=== PATIENT | male | born 1980 | race Caucasian/White ===

== ENCOUNTER 2021-05-22 13:46 | Emergency (ER) | payer MEDICAID ==
[2021-05-22] MEDS ORDERED: CYCL10 PO (14:27)
[2021-05-22] MEDS ORDERED: FAMO20 PO (14:27)
[2021-05-22] MEDS ORDERED: SULF-261 PO (14:27)
[2021-05-22] MEDS ORDERED: LOPE2 PO (14:27)
[2021-05-22] MEDS ORDERED: DICY20TA2 PO (14:27)
[2021-05-22] MEDS ORDERED: KETOROLAC TROMETHAMINE 30 MG/ML VIAL IVP ONE (14:30)
[2021-05-22] MEDS ORDERED: SODIUM CHLORIDE 0.9% 1,000 ML IV ONE (14:30)
[2021-05-22 14:56] LABS: COVID AG,FIA SOURCE NASOPHARYNGEAL
[2021-05-22 14:57] LABS: BASOPHILS % (AUTO) 0.1 % (0.0-2.0); EOSINOPHILS % (AUTO) 0.9 % (1.0-6.0); HEMATOCRIT 41.1 % (41-53); HEMOGLOBIN 13.7 g/dL (13.5-17.5); LYMPHOCYTES # (AUTO) 0.5 K/uL (1.0-4.8); MEAN CORPUSCULAR HEMOGLOBIN 29.2 pg (26.0-34.0); MEAN CORPUSCULAR HGB CONC 33.3 G/dL (31.0-37.0); MEAN CORPUSCULAR VOLUME 88 fL (80-100); MONOCYTES # (AUTO) 0.3 K/uL (0.1-1.0); MONOCYTES % (AUTO) 6.8 % (2.0-9.0); NEUTROPHILS # (AUTO) 3.7 K/uL (1.8-7.7); NEUTROPHILS % (AUTO) 82.2 % (40.0-70.0); PLATELET COUNT (AUTO) 100 K/uL (150-450); RED BLOOD CELL COUNT(AUTO) 4.68 MIL/uL (4.50-5.90); RED CELL DISTRIBUTION WIDTH 13.3 % (11.5-14.5)
[2021-05-22 15:15] LABS: CALCIUM, TOTAL 7.8 mg/dL (8.8-10.5); CARBON DIOXIDE 30 mmol/L (22-29); CHLORIDE 105 mmol/L (98-107); CREATININE 0.95 mg/dL (0.60-1.30); GLOMERULAR FILTR. RATE CALC > 60 mL/min (>60); GLUCOSE,RANDOM 94 mg/dL (70-110); POTASSIUM 3.5 mmol/L (3.5-5.1); UREA NITROGEN, BLOOD 9 mg/dL (7-18)
[2021-05-22 15:21] LABS: ALANINE AMINOTRANSFERASE 130 U/L (12-78); ALBUMIN 3.1 g/dL (3.4-5.0); ALKALINE PHOSPHATASE 99 U/L (46-116); ANION GAP 7 mmol/L (8-16); ASPARTATE AMINOTRANSFERASE 66 U/L (15-37); BILIRUBIN,TOTAL 1.7 mg/dL (0.1-1.0); LIPASE 89 U/L (73-393); SODIUM SERUM 142 mmol/L (136-145); TOTAL PROTEIN, SERUM 6.7 g/dL (6.4-8.2)
[2021-05-22] MEDS ORDERED: ONDANSETRON HCL 4 MG/2 ML VIAL IVP ONE (16:45)
[2021-05-22 18:59] LABS: APPEARANCE,URINE CLEAR (CLEAR); BILIRUBIN,URINE NEGATIVE (NEGATIVE); GLUCOSE, URINE (UA) NEGATIVE (NEGATIVE); KETONES,URINE TRACE mg/dL (NEGATIVE); LEUKOCYTE ESTERASE ,URINE NEGATIVE (NEGATIVE); NITRATE,URINE NEGATIVE (NEGATIVE); OCCULT BLOOD,URINE NEGATIVE (NEGATIVE); PH,URINE 5.5 (5.0-8.0); PROTEIN,URINE NEGATIVE (NEGATIVE); UROBILINOGEN,URINE 0.2 mg/dL (<=1.0)
[2021-05-22 19:21] VITALS: BP 123/70
[2021-05-22 19:25] LABS: BACTERIA,URINE Rare /HPF (None Seen); RBC,URINE 0-2 /HPF (0-2); WBC,URINE 0-2 /HPF (0-5)
== END 2021-05-22 19:25 | disposition home or self-care (01) ==
LOC: EMS 13:46
DX: R19.7 Diarrhea, unspecified (principal); R74.8 Abnormal levels of other serum enzymes; J02.9 Acute pharyngitis, unspecified; R10.11 Right upper quadrant pain; K21.9 Gastro-esophageal reflux disease without esophagitis; F17.200 Nicotine dependence, unspecified, uncomplicated; F19.90 Other psychoactive substance use, unspecified, uncomplicated; Z20.822 Contact with and (suspected) exposure to COVID-19
CPT/HCPCS: 36415; 74176; 76705; 80053; 81001; 83690; 85025; 87426; 96361; 96374; 96375; 99285; J1885; J2405; J7030

== ENCOUNTER 2023-06-02 13:10 | Emergency (ER) | payer MEDICAID ==
[~2023-06-02] VITALS: Ht 160 cm; Wt 81.4 kg
[~2023-06-02 13:10] MED LIST: CYCL-448 PO; DICY20TA95 PO; FAMO20 PO; LOPE-232 PO; SULF-261 PO
[2023-06-02 13:15] VITALS: TEMP 98
[2023-06-02 14:10] LABS: BASOPHILS % (AUTO) 0.1 % (0.0-2.0); EOSINOPHILS % (AUTO) 0 % (1.0-6.0); HEMATOCRIT 47.5 % (41-53); HEMOGLOBIN 16.2 g/dL (13.5-17.5); LYMPHOCYTES # (AUTO) 0.6 K/uL (1.0-4.8); LYMPHOCYTES % (AUTO) 10.8 % (22.0-44.0); MEAN CORPUSCULAR HEMOGLOBIN 31.5 pg (26.0-34.0); MEAN CORPUSCULAR VOLUME 93 fL (80-100); MONOCYTES # (AUTO) 0.4 K/uL (0.1-1.0); MONOCYTES % (AUTO) 7.6 % (2.0-9.0); NEUTROPHILS # (AUTO) 4.7 K/uL (1.8-7.7); NEUTROPHILS % (AUTO) 81.5 % (40.0-70.0); PLATELET COUNT (AUTO) 178 K/uL (150-450); RED BLOOD CELL COUNT(AUTO) 5.13 MIL/uL (4.50-5.90); RED CELL DISTRIBUTION WIDTH 13.3 % (11.5-14.5); WHITE BLOOD COUNT (AUTO) 5.7 K/uL (4.5-11.0)
[2023-06-02 14:28] LABS: ALCOHOL, BLOOD (SERUM) < 3 mg/dL (0-10)
[2023-06-02 14:29] LABS: LACTIC ACID 1.9 mmol/L (0.4-2.0)
[2023-06-02 14:32] LABS: TROPONIN I-HIGH SENSITIVITY 10 ng/L (<76)
[2023-06-02 14:41] LABS: ANION GAP 10 mmol/L (8-16); CALCIUM, TOTAL 9.1 mg/dL (8.8-10.5); CARBON DIOXIDE 25 mmol/L (22-29); CHLORIDE 105 mmol/L (98-107); CREATININE 0.95 mg/dL (0.60-1.30); GLOMERULAR FILTR. RATE CALC > 60 mL/min (>60); GLUCOSE,RANDOM 120 mg/dL (70-110); POTASSIUM 3.9 mmol/L (3.5-5.1); SODIUM SERUM 140 mmol/L (136-145); UREA NITROGEN, BLOOD 12 mg/dL (7-18)
[2023-06-02 15:05] LABS: ALANINE AMINOTRANSFERASE 45 U/L (12-78); ALBUMIN 3.8 g/dL (3.4-5.0); ALKALINE PHOSPHATASE 81 U/L (46-116); ASPARTATE AMINOTRANSFERASE 21 U/L (15-37); BILIRUBIN,TOTAL 1.7 mg/dL (0.1-1.0); CREATINE KINASE, TOTAL ONLY 111 U/L (39-308); LIPASE 23 U/L (16-77); TOTAL PROTEIN, SERUM 7.1 g/dL (6.4-8.2)
[2023-06-02 15:27] LABS: APPEARANCE,URINE CLEAR (CLEAR); BILIRUBIN,URINE NEGATIVE (NEGATIVE); COLOR,URINE YELLOW (YELLOW); GLUCOSE, URINE (UA) NEGATIVE (NEGATIVE); KETONES,URINE NEGATIVE (NEGATIVE); LEUKOCYTE ESTERASE ,URINE NEGATIVE (NEGATIVE); NITRATE,URINE NEGATIVE (NEGATIVE); OCCULT BLOOD,URINE NEGATIVE (NEGATIVE); PH,URINE 6.5 (5.0-8.0); PH,URINE DRUG SCREEN 6.5 (5.0-8.0); PROTEIN,URINE 30-70 mg/dL (NEGATIVE); SPECIFIC GRAVITIY, URINE 1.022 (1.003-1.030); UROBILINOGEN,URINE <=1.0 mg/dL (<=1.0)
[2023-06-02 15:33] LABS: ALCOHOL, URINE DRUG SCREEN NEGATIVE (NEGATIVE); AMPHET/METH SCREEN,URINE POSITIVE (NEGATIVE); BARBITURATE SCREEN, URINE NEGATIVE (NEGATIVE); BENZODIAZEPINES SCREEN,URINE NEGATIVE (NEGATIVE); CANNABINOID SCREEN,URINE NEGATIVE (NEGATIVE); COCAINE SCREEN,URINE NEGATIVE (NEGATIVE); METHADONE SCREEN, URINE NEGATIVE (NEGATIVE); OPIATE SCREEN,URINE NEGATIVE (NEGATIVE); PHENCYCLIDINE SCREEN,URINE NEGATIVE (NEGATIVE)
[2023-06-02 15:34] LABS: BACTERIA,URINE None Seen /HPF (None Seen); RBC,URINE 0-2 /HPF (0-2); SQUAMOUS EPITHELIAL CELL,UR Rare /LPF (None Seen); WBC,URINE 0-2 /HPF (0-5)
[2023-06-02 16:42] VITALS: BP 148/86; PULSE 89; RESP 16
== END 2023-06-02 16:54 | disposition home or self-care (01) ==
LOC: EMS 13:12
DX: F41.9 Anxiety disorder, unspecified (principal); R07.89 Other chest pain; F15.10 Other stimulant abuse, uncomplicated
CPT/HCPCS: 99285; 71045; 80053; 81001; 82550; 83605; 83690; 84484; 85025; 36415; 93005; 80307; G0480

== ENCOUNTER 2023-07-11 13:06 | Emergency (ER) | payer MEDICAID ==
[~2023-07-11] VITALS: Ht 160 cm; Wt 81.8 kg
[2023-07-11 13:31] VITALS: TEMP 98.2
[2023-07-11 13:59] LABS: COVID AG,FIA SOURCE NASAL SWAB
[2023-07-11 14:08] LABS: SARS-COV2 (COVID) ANTIGEN,FIA Negative (Negative)
[2023-07-11] MEDS ORDERED: AMPICILLIN SODIUM/SULBACTAM NA 3 GM in SODIUM CHLORIDE 0.9% 100 ML IV ONE (15:00)
[2023-07-11] MEDS ORDERED: SODIUM CHLORIDE 0.9% 2,450 ML IV ONE (15:00)
[2023-07-11] MEDS ORDERED: ACETAMINOPHEN 500 MG TABLET PO ONE (15:00)
[2023-07-11] MEDS ORDERED: VANCOMYCIN HCL 1.25 GM in DEXTROSE 5%-WATER 250 ML IV ONE (15:00)
[2023-07-11] MEDS ORDERED: KETOROLAC TROMETHAMINE 30 MG/ML VIAL IVP ONE (15:00)
[2023-07-11 15:32] LABS: BASOPHILS % (AUTO) 0.4 % (0.0-2.0); EOSINOPHILS % (AUTO) 0.5 % (1.0-6.0); HEMATOCRIT 45.1 % (41-53); HEMOGLOBIN 15.8 g/dL (13.5-17.5); LYMPHOCYTES # (AUTO) 1.3 K/uL (1.0-4.8); LYMPHOCYTES % (AUTO) 13.6 % (22.0-44.0); MEAN CORPUSCULAR HEMOGLOBIN 31.6 pg (26.0-34.0); MEAN CORPUSCULAR VOLUME 90 fL (80-100); MONOCYTES % (AUTO) 10.3 % (2.0-9.0); NEUTROPHILS # (AUTO) 7.1 K/uL (1.8-7.7); NEUTROPHILS % (AUTO) 75.2 % (40.0-70.0); PLATELET COUNT (AUTO) 176 K/uL (150-450); RED BLOOD CELL COUNT(AUTO) 5.01 MIL/uL (4.50-5.90); WHITE BLOOD COUNT (AUTO) 9.4 K/uL (4.5-11.0)
[2023-07-11 15:38] LABS: ANION GAP 10 mmol/L (8-16); CALCIUM, TOTAL 8.9 mg/dL (8.8-10.5); CARBON DIOXIDE 26 mmol/L (22-29); CHLORIDE 98 mmol/L (98-107); CREATININE 1.25 mg/dL (0.60-1.30); GLOMERULAR FILTR. RATE CALC > 60 mL/min (>60); GLUCOSE,RANDOM 101 mg/dL (70-110); POTASSIUM 3.8 mmol/L (3.5-5.1); SODIUM SERUM 134 mmol/L (136-145); UREA NITROGEN, BLOOD 12 mg/dL (7-18)
[2023-07-11 15:44] LABS: ALANINE AMINOTRANSFERASE 35 U/L (12-78); ALBUMIN 3.3 g/dL (3.4-5.0); ALKALINE PHOSPHATASE 101 U/L (46-116); ASPARTATE AMINOTRANSFERASE 17 U/L (15-37); BILIRUBIN,TOTAL 1.4 mg/dL (0.1-1.0); CREATINE KINASE, TOTAL ONLY 57 U/L (39-308); TOTAL PROTEIN, SERUM 7.9 g/dL (6.4-8.2)
[2023-07-11 16:12] LABS: ALCOHOL, BLOOD (SERUM) < 3 mg/dL (0-10)
[2023-07-11] MEDS ORDERED: IOHEXOL 350 MG/ML 100 ML VIAL ONE (16:17)
[2023-07-11] MEDS ORDERED: SODIUM CHLORIDE 0.9% 100 ML ONE (16:17)
[2023-07-11] MEDS ORDERED: ZOLPIDEM TARTRATE 5 MG TABLET PO PRN (16:30)
[2023-07-11] MEDS ORDERED: MAGNESIUM HYDROXIDE SUSPENSION 30 ML UDCUP PO PRN (16:30)
[2023-07-11] MEDS ORDERED: MORPHINE SULFATE 2 MG/ML SYRINGE IVP PRN (16:30)
[2023-07-11] MEDS ORDERED: ACETAMINOPHEN 325 MG TABLET PO PRN (16:30)
[2023-07-11] MEDS ORDERED: ONDANSETRON HCL 4 MG/2 ML VIAL IVP PRN (16:30)
[2023-07-11] MEDS ORDERED: OxyCODONE HCL/ACETAMINOPHEN 5-325 MG TABLET PO PRN (16:30)
[2023-07-11] MEDS ORDERED: CloNIDine HCL 0.1 MG TABLET PO PRN (16:30)
[2023-07-11 18:23] VITALS: BP 134/98; PULSE 89; RESP 16
[2023-07-11 18:26] LABS: APPEARANCE,URINE CLEAR (CLEAR); BILIRUBIN,URINE NEGATIVE (NEGATIVE); COLOR,URINE YELLOW (YELLOW); GLUCOSE, URINE (UA) TRACE mg/dL (NEGATIVE); KETONES,URINE NEGATIVE (NEGATIVE); LEUKOCYTE ESTERASE ,URINE NEGATIVE (NEGATIVE); NITRATE,URINE NEGATIVE (NEGATIVE); OCCULT BLOOD,URINE NEGATIVE (NEGATIVE); PROTEIN,URINE NEGATIVE (NEGATIVE); SPECIFIC GRAVITIY, URINE 1.018 (1.003-1.030)
[2023-07-11 18:50] LABS: ALCOHOL, URINE DRUG SCREEN NEGATIVE (NEGATIVE); AMPHET/METH SCREEN,URINE POSITIVE (NEGATIVE); BARBITURATE SCREEN, URINE NEGATIVE (NEGATIVE); BENZODIAZEPINES SCREEN,URINE NEGATIVE (NEGATIVE); CANNABINOID SCREEN,URINE NEGATIVE (NEGATIVE); COCAINE SCREEN,URINE NEGATIVE (NEGATIVE); METHADONE SCREEN, URINE NEGATIVE (NEGATIVE); OPIATE SCREEN,URINE NEGATIVE (NEGATIVE); PHENCYCLIDINE SCREEN,URINE NEGATIVE (NEGATIVE)
[2023-07-11] MEDS ORDERED: SODIUM CHLORIDE 0.9% 1,000 ML IV ONE (19:00)
[2023-07-11] MEDS ORDERED: VANCOMYCIN 1GM/WATER(PEG/NADA) 200 ML IV ONE (20:00)
[2023-07-11] MEDS ORDERED: DOCUSATE SODIUM 100 MG CAPSULE PO SCH (21:00)
[2023-07-12] MEDS ORDERED: FAMOTIDINE 20 MG TABLET PO SCH (09:00)
== END 2023-07-11 19:16 | disposition left against medical advice (07) ==
LOC: EMS 13:06 → AHU 16:36 → UNDOADMIN 16:36 → EMS 19:16
DX: L03.211 Cellulitis of face (principal); F15.10 Other stimulant abuse, uncomplicated
CPT/HCPCS: 99285; 70470; 96365; 96375; 87426; 80053; 81003; 82550; 83605; 85025; 87040; 36415; 70487; 96368; 80307; 84145; J1885; J3370; J0295; Q9967; J7060; J7050; G0480

== ENCOUNTER 2023-09-07 17:34 | Emergency (ER) | payer MEDICAID ==
[~2023-09-07] VITALS: Ht 160 cm; Wt 84.1 kg
[2023-09-07] MEDS ORDERED: ASPIRIN 81 MG CHEWABLE TABLET PO ONE (17:45)
[2023-09-07 18:15] LABS: BASOPHILS % (AUTO) 0.1 % (0.0-2.0); EOSINOPHILS % (AUTO) 0.4 % (1.0-6.0); HEMATOCRIT 43.5 % (41-53); HEMOGLOBIN 15.2 g/dL (13.5-17.5); LYMPHOCYTES % (AUTO) 12.3 % (22.0-44.0); MEAN CORPUSCULAR HEMOGLOBIN 31.6 pg (26.0-34.0); MEAN CORPUSCULAR VOLUME 90 fL (80-100); MONOCYTES # (AUTO) 0.5 K/uL (0.1-1.0); NEUTROPHILS # (AUTO) 6.8 K/uL (1.8-7.7); NEUTROPHILS % (AUTO) 81.2 % (40.0-70.0); PLATELET COUNT (AUTO) 159 K/uL (150-450); RED BLOOD CELL COUNT(AUTO) 4.82 MIL/uL (4.50-5.90); RED CELL DISTRIBUTION WIDTH 14.1 % (11.5-14.5); WHITE BLOOD COUNT (AUTO) 8.3 K/uL (4.5-11.0)
[2023-09-07 18:27] LABS: INR 1.1 (0.9-1.1); PROTHROMBIN TIME 11.5 SEC (9.4-11.6)
[2023-09-07 18:34] LABS: TROPONIN I-HIGH SENSITIVITY Less Than 4 ng/L (<76)
[2023-09-07 18:37] LABS: B-TYPE NATRIURETIC PEPTIDE < 5 pg/mL (0-100)
[2023-09-07 19:12] LABS: ALANINE AMINOTRANSFERASE 46 U/L (12-78); ALKALINE PHOSPHATASE 104 U/L (46-116); ANION GAP 10 mmol/L (8-16); ASPARTATE AMINOTRANSFERASE 22 U/L (15-37); BILIRUBIN,TOTAL 0.6 mg/dL (0.1-1.0); CALCIUM, TOTAL 8.5 mg/dL (8.8-10.5); CARBON DIOXIDE 23 mmol/L (22-29); CHLORIDE 105 mmol/L (98-107); CREATINE KINASE, TOTAL ONLY 110 U/L (39-308); CREATININE 1.03 mg/dL (0.60-1.30); GLOMERULAR FILTR. RATE CALC > 60 mL/min (>60); GLUCOSE,RANDOM 122 mg/dL (70-110); SODIUM SERUM 138 mmol/L (136-145)
[2023-09-07 19:17] LABS: ALBUMIN 3.7 g/dL (3.4-5.0); UREA NITROGEN, BLOOD 13 mg/dL (7-18)
[2023-09-07 19:57] LABS: APPEARANCE,URINE CLEAR (CLEAR); BILIRUBIN,URINE NEGATIVE (NEGATIVE); COLOR,URINE LIGHT YELLOW (YELLOW); GLUCOSE, URINE (UA) NEGATIVE (NEGATIVE); KETONES,URINE NEGATIVE (NEGATIVE); LEUKOCYTE ESTERASE ,URINE NEGATIVE (NEGATIVE); NITRATE,URINE NEGATIVE (NEGATIVE); OCCULT BLOOD,URINE NEGATIVE (NEGATIVE); PROTEIN,URINE NEGATIVE (NEGATIVE); SPECIFIC GRAVITIY, URINE 1.015 (1.003-1.030); UROBILINOGEN,URINE <=1.0 mg/dL (<=1.0)
[2023-09-07 20:02] LABS: AMPHET/METH SCREEN,URINE NEGATIVE (NEGATIVE); BARBITURATE SCREEN, URINE NEGATIVE (NEGATIVE); BENZODIAZEPINES SCREEN,URINE NEGATIVE (NEGATIVE); CANNABINOID SCREEN,URINE NEGATIVE (NEGATIVE); COCAINE SCREEN,URINE NEGATIVE (NEGATIVE); METHADONE SCREEN, URINE NEGATIVE (NEGATIVE); OPIATE SCREEN,URINE NEGATIVE (NEGATIVE); PHENCYCLIDINE SCREEN,URINE NEGATIVE (NEGATIVE)
[2023-09-07 20:05] LABS: ALCOHOL, URINE DRUG SCREEN NEGATIVE (NEGATIVE)
[2023-09-07 21:28] LABS: TROPONIN I-HIGH SENSITIVITY 4 ng/L (<76)
[2023-09-07 22:18] VITALS: TEMP 97.7
[2023-09-07 22:22] VITALS: BP 137/84; PULSE 80; RESP 16
== END 2023-09-07 22:28 | disposition home or self-care (01) ==
LOC: EMS 17:38
DX: R07.9 Chest pain, unspecified (principal); F41.9 Anxiety disorder, unspecified; R07.89 Other chest pain; K21.9 Gastro-esophageal reflux disease without esophagitis; F15.90 Other stimulant use, unspecified, uncomplicated
CPT/HCPCS: 71045; 80053; 80307; 81003; 82550; 83880; 84484; 85025; 85610; 85730; 93005; 99285; 36415-L1; 36415-TC

== ENCOUNTER 2024-03-09 09:57 | Emergency (ER) | payer SELFPAY ==
[~2024-03-09] VITALS: Ht 162.6 cm; Wt 100.0 kg
[~2024-03-09 09:57] MED LIST changes: -SULF-261 PO
[2024-03-09 10:17] VITALS: TEMP 98.2
[2024-03-09] MEDS: OxyCODONE HCL/ACETAMINOPHEN 5-325 MG TABLET PO ONE (10:47)
[2024-03-09] MEDS: KETOROLAC TROMETHAMINE 60 MG/2 ML VIAL IM ONE (10:47)
[2024-03-09 11:15] LABS: TROPONIN I-HIGH SENSITIVITY Less Than 4 ng/L (<76)
[2024-03-09 13:49] VITALS: BP 154/85; PULSE 74; RESP 18
[2024-03-09] MEDS ORDERED: IBUP-1492 PO (14:01)
== END 2024-03-09 14:45 | disposition home or self-care (01) ==
LOC: EMS 09:57
DX: N43.3 Hydrocele, unspecified (principal); F15.90 Other stimulant use, unspecified, uncomplicated
CPT/HCPCS: 99285; 84484; 36415; 76870; 93005; 96372; J1885